=== PATIENT | female | born 1930 | race African-American/Black ===

== ENCOUNTER 2021-07-20 14:24 | Inpatient (IN) | payer MEDICARE, OTHER ==
[~2021-07-20] VITALS: Ht 162.6 cm; Wt 46.3 kg
[2021-07-20 16:01] LABS: HEMOGLOBIN. 11.2 g/dL (12.0-16.0); MEAN CORPUSCULAR HEMOGLOBIN 27.4 pg (28.0-32.0); MEAN CORPUSCULAR VOLUME 85.6 fL (81.0-99.0); MEAN PLATELET VOLUME 10.4 fl (7.4-10.4); PLATELET 92 x1000/uL (130-400); RED BLOOD CELL COUNT 4.09 mill/uL (4.2-5.4); RED CELL DISTRIBUTION WIDTH 18.6 % (11.6-14.6)
[2021-07-20 16:08] LABS: CHLORIDE 116 mEq/L (98-107)
[2021-07-20 16:35] LABS: PLATELET ESTIMATE DECREASED
[2021-07-20] MEDS ORDERED: SODIUM CHLORIDE 0.9% 500 ML IV ONE (20:00)
[2021-07-20] MEDS ORDERED: PANTOPRAZOLE SODIUM 40 MG/VIAL IV ONE (20:30)
[2021-07-20] MEDS ORDERED: AMLODIPINE 2.5MG TABLET PO ONE (21:15)
[2021-07-20 22:10] LABS: CLARITY URINE CLEAR (CLEAR); COLOR URINE YELLOW (YELLOW); KETONES URINE NEGATIVE (NEGATIVE); LEUKOCYTE ESTERASE URINE NEGATIVE (NEGATIVE); NITRITE URINE NEGATIVE (NEGATIVE); OCCULT BLOOD URINE 1+ (NEGATIVE); PROTEIN URINE 2+ (NEGATIVE); SPECIFIC GRAVITY URINE 1.011 (1.005-1.030)
[2021-07-21] MEDS ORDERED: DILTIAZEM HCL 5MG/ML 5ML VIAL IV ONE ×2 (01:00→01:15)
[2021-07-21] MEDS ORDERED: DILTIAZEM HCL 125 MG in DEXT 5% WATER 100 ML IV ONE (01:30)
[2021-07-21] MEDS ORDERED: CLONIDINE 0.1MG TABLET PO PRN (02:00)
[2021-07-21] MEDS ORDERED: ONDANSETRON HCL 4MG/2ML INJ IV PRN (02:00)
[2021-07-21] MEDS ORDERED: DILTIAZEM HCL 125 MG in DEXT 5% WATER 100 ML IV SCH (02:00)
[2021-07-21] MEDS ORDERED: DIPHENHYDRAMINE 50MG/ML VIAL IV PRN (02:00)
[2021-07-21] MEDS ORDERED: ACETAMINOPHEN 325MG TABLET PO PRN (02:00)
[2021-07-21] MEDS: PANTOPRAZOLE SODIUM 40 MG/VIAL IV SCH ×3 (03:06→21:26)
[2021-07-21 03:59] VITALS: BP 168/64
[2021-07-21 04:00] VITALS: BP 168/64
[2021-07-21] MEDS: SODIUM CHLORIDE 0.9% 1,000 ML IV SCH ×3 (05:54→21:27)
[2021-07-21] MEDS ORDERED: DILTIAZEM HCL 30MG TABLET PO SCH (06:00)
[2021-07-21 07:50] LABS: HEMATOCRIT 32.5 % (36.0-48.0); HEMOGLOBIN 10.6 g/dL (12.0-16.0); MEAN CORPUSCULAR HEMOGLOBIN 27.7 pg (28.0-32.0); MEAN CORPUSCULAR VOLUME 85.2 fL (81.0-99.0); PLATELET 75 x1000/uL (130-400); RED BLOOD CELL COUNT 3.81 mill/uL (4.2-5.4); RED CELL DISTRIBUTION WIDTH 18.4 % (11.6-14.6)
[2021-07-21 08:00] VITALS: BP 146/73
[2021-07-21] MEDS ORDERED: DILTIAZEM HCL 5MG/ML 5ML VIAL IV NR ×2 (09:00→10:00)
[2021-07-21 12:00] VITALS: BP 190/75
[2021-07-21] MEDS ORDERED: POTASSIUM CHLORIDE 20MEQ/PACKET PO NR (13:00)
[2021-07-21] MEDS ORDERED: CLONIDINE 0.2MG TABLET PO PRN (13:15)
[2021-07-21] MEDS: LOSARTAN POTASSIUM 25 MG TABLET PO SCH (13:30)
[2021-07-21] MEDS ORDERED: DILTIAZEM HCL 90MG TABLET PO NR (13:30)
[2021-07-21 16:00] VITALS: BP 97/53
[2021-07-21] MEDS: DILTIAZEM HCL 90MG TABLET PO SCH (18:40)
[2021-07-21 20:00] VITALS: BP 155/66
[2021-07-21 21:03] LABS: TOTAL IRON BINDING CAPACITY 116 ug/dL (250-450)
[2021-07-22] VITALS (7 sets, daily range): BP systolic 127–157; BP diastolic 47–69
[2021-07-22] MEDS: DILTIAZEM HCL 90MG TABLET PO SCH ×5 (00:35→23:24)
[2021-07-22 08:48] LABS: CHLORIDE 114 mEq/L (98-107)
[2021-07-22] MEDS: LOSARTAN POTASSIUM 25 MG TABLET PO SCH ×2 (09:06→21:13)
[2021-07-22] MEDS: PANTOPRAZOLE SODIUM 40 MG/VIAL IV SCH ×2 (09:06→21:13)
[2021-07-22 09:07] LABS: LDL CHOLESTEROL 24 mg/dL (5-100)
[2021-07-22 09:08] LABS: CREATINE KINASE 40 IU/L (26-192); HDL CHOLESTEROL 32 mg/dL (40-59)
[2021-07-22] MEDS: SODIUM CHLORIDE 0.9% 1,000 ML IV SCH ×2 (09:11→17:58)
[2021-07-22] MEDS ORDERED: SODIUM CHLORIDE 0.45% 250 ML IV ONE (12:15)
[2021-07-22] MEDS: ACETAMINOPHEN 325MG TABLET PO PRN (12:33)
[2021-07-22] MEDS: CLONIDINE 0.1MG TABLET PO PRN (12:33)
[2021-07-22] MEDS: FERROUS SULFATE 325MG TABLET PO SCH ×2 (12:34→17:58)
[2021-07-22] MEDS ORDERED: MAGNESIUM 2 G PREMIX 50 ML IV SCH (14:00)
[2021-07-22 16:12] LABS: HEMATOCRIT. 37.3 % (36.0-48.0); HEMOGLOBIN. 11.1 g/dL (12.0-16.0); MEAN CORPUSCULAR HEMOGLOBIN 27.7 pg (28.0-32.0); MEAN PLATELET VOLUME 10.2 fl (7.4-10.4); PLATELET 63 x1000/uL (130-400); RED BLOOD CELL COUNT 4.01 mill/uL (4.2-5.4); RED CELL DISTRIBUTION WIDTH 19.7 % (11.6-14.6)
[2021-07-22 18:38] LABS: PLATELET ESTIMATE DECREASED
[2021-07-23] MEDS: SODIUM CHLORIDE 0.9% 1,000 ML IV SCH ×2 (01:37→13:06)
[2021-07-23 04:00] VITALS: BP 130/64
[2021-07-23] MEDS: DILTIAZEM HCL 90MG TABLET PO SCH ×3 (05:31→17:42)
[2021-07-23 08:00] VITALS: BP 142/61
[2021-07-23 08:08] LABS: HEMATOCRIT. 37.1 % (36.0-48.0); HEMOGLOBIN. 11.4 g/dL (12.0-16.0); MEAN CORPUSCULAR HEMOGLOBIN 27.3 pg (28.0-32.0); MEAN CORPUSCULAR VOLUME 88.5 fL (81.0-99.0); MEAN PLATELET VOLUME 10.6 fl (7.4-10.4); PLATELET 91 x1000/uL (130-400); RED BLOOD CELL COUNT 4.19 mill/uL (4.2-5.4); RED CELL DISTRIBUTION WIDTH 18.5 % (11.6-14.6)
[2021-07-23] MEDS: LOSARTAN POTASSIUM 25 MG TABLET PO SCH ×2 (08:31→21:09)
[2021-07-23] MEDS: PANTOPRAZOLE SODIUM 40 MG/VIAL IV SCH (08:31)
[2021-07-23] MEDS: FERROUS SULFATE 325MG TABLET PO SCH ×3 (08:31→17:43)
[2021-07-23 12:00] VITALS: BP 165/69
[2021-07-23 14:00] LABS: BG BASE EXCESS -6.3 mmol/L (-2.0-2.0); BG CARBOXYHEMOGLOBIN 0.3 % (0.5-1.5); BG DEOXYHEMOGLOBIN 13.1 % (0.0-5.0); BG FRACTION INSPIRED OXYGEN 40; BG HCO3 ACT 17.7 mmol/L (22.0-26.0); BG METHEMOGLOBIN 0.3 % (0.0-1.5); BG OXYGEN SATURATION 86.8 % (92.0-98.5); BG OXYHEMOGLOBIN 86.3 % (94.0-97.0); BG PCO2 30.7 mmHg (35.0-45.0); BG PH 7.379 (7.350-7.450); BG PO2 54.9 mmHg (75.0-100.0); BG SAMPLE SITE RIGHT RADIAL; BG TOTAL HEMOGLOBIN 12.6 g/dL (12.0-18.0); BG VENT MODE NASAL CANNULA
[2021-07-23 16:00] VITALS: BP 169/76
[2021-07-23] MEDS ORDERED: ALBUTEROL 6.7GM HFA INHALER ORI PRN (17:00)
[2021-07-23] MEDS ORDERED: DEXAMETHASONE 4MG/ML 1ML VIAL IV SCH (17:00)
[2021-07-23 17:17] LABS: PLATELET ESTIMATE DECREASED
[2021-07-23] MEDS: GUAIFENESIN 600MG ER TABLET PO SCH (17:41)
[2021-07-23 20:00] VITALS: BP 145/57
[2021-07-23] MEDS: PANTOPRAZOLE 40MG DR TABLET PO SCH (21:08)
[2021-07-24] VITALS: BP 149/56
[2021-07-24] MEDS: LOSARTAN POTASSIUM 25 MG TABLET PO SCH ×2 (00:32→21:28)
[2021-07-24] MEDS: DILTIAZEM HCL 90MG TABLET PO SCH ×5 (00:33→23:58)
[2021-07-24 04:00] VITALS: BP 160/70
[2021-07-24 08:00] VITALS: BP 169/64
[2021-07-24] MEDS: CLONIDINE 0.1MG TABLET PO PRN (08:25)
[2021-07-24] MEDS: DEXAMETHASONE 10 MG/ML VIAL IV SCH (08:25)
[2021-07-24] MEDS: FERROUS SULFATE 325MG TABLET PO SCH ×3 (08:26→16:18)
[2021-07-24] MEDS: GUAIFENESIN 600MG ER TABLET PO SCH ×2 (08:26→21:29)
[2021-07-24] MEDS: PANTOPRAZOLE 40MG DR TABLET PO SCH ×2 (08:26→21:29)
[2021-07-24 12:00] VITALS: BP 166/61
[2021-07-24] MEDS: HYDRALAZINE HCL 25MG TABLET PO SCH ×2 (12:19→21:30)
[2021-07-24] MEDS: ALBUTEROL 6.7GM HFA INHALER ORI SCH ×2 (15:00→21:27)
[2021-07-24 15:13] LABS: BG BASE EXCESS -9.4 mmol/L (-2.0-2.0); BG CARBOXYHEMOGLOBIN 0.4 % (0.5-1.5); BG DEOXYHEMOGLOBIN 7.2 % (0.0-5.0); BG FRACTION INSPIRED OXYGEN 99.8; BG HCO3 ACT 14.9 mmol/L (22.0-26.0); BG METHEMOGLOBIN 0.4 % (0.0-1.5); BG OXYGEN SATURATION 92.7 % (92.0-98.5); BG PCO2 28.1 mmHg (35.0-45.0); BG PH 7.341 (7.350-7.450); BG PO2 69.8 mmHg (75.0-100.0); BG SAMPLE SITE LEFT RADIAL; BG VENT MODE MASK - NRB
[2021-07-24 15:57] VITALS: BP 147/63
[2021-07-24] MEDS: ACETAMINOPHEN 325MG TABLET PO PRN (16:17)
[2021-07-24] MEDS: CEFEPIME 1,000 MG in DEXTROSE 5% WATER 50 ML IV SCH (16:19)
[2021-07-24 20:00] VITALS: BP 151/62
[2021-07-24] MEDS: DOXYCYCLINE HYCLATE 100MG CAPSULE PO SCH (21:28)
[2021-07-24] MEDS: ASCORBIC ACID 250 MG TABLET PO SCH (21:29)
[2021-07-25] VITALS (8 sets, daily range): BP systolic 78–165; BP diastolic 45–75
[2021-07-25] MEDS: ALBUTEROL 6.7GM HFA INHALER ORI SCH ×4 (03:00→21:00)
[2021-07-25] MEDS: CEFEPIME 1,000 MG in DEXTROSE 5% WATER 50 ML IV SCH ×2 (05:47→16:09)
[2021-07-25] MEDS: DILTIAZEM HCL 90MG TABLET PO SCH ×3 (05:50→17:21)
[2021-07-25] MEDS: HYDRALAZINE HCL 25MG TABLET PO SCH ×3 (05:51→21:43)
[2021-07-25 07:11] LABS: HEMATOCRIT. 40.5 % (36.0-48.0); HEMOGLOBIN. 12.5 g/dL (12.0-16.0); MEAN CORPUSCULAR HEMOGLOBIN 27.1 pg (28.0-32.0); MEAN CORPUSCULAR VOLUME 87.9 fL (81.0-99.0); MEAN PLATELET VOLUME 10.5 fl (7.4-10.4); PLATELET 95 x1000/uL (130-400); RED CELL DISTRIBUTION WIDTH 19.5 % (11.6-14.6)
[2021-07-25 07:26] LABS: T4 FREE 2.23 ng/dL (0.76-1.46)
[2021-07-25] MEDS: DOXYCYCLINE HYCLATE 100MG CAPSULE PO SCH ×2 (08:56→21:00)
[2021-07-25] MEDS: DEXAMETHASONE 10 MG/ML VIAL IV SCH (08:56)
[2021-07-25] MEDS: ASCORBIC ACID 250 MG TABLET PO SCH ×2 (08:56→21:00)
[2021-07-25] MEDS: LOSARTAN POTASSIUM 25 MG TABLET PO SCH ×2 (08:56→21:00)
[2021-07-25] MEDS: FERROUS SULFATE 325MG TABLET PO SCH ×3 (08:56→17:23)
[2021-07-25] MEDS: PANTOPRAZOLE 40MG DR TABLET PO SCH ×2 (08:57→21:00)
[2021-07-25] MEDS: GUAIFENESIN 600MG ER TABLET PO SCH ×2 (08:57→21:00)
[2021-07-25] MEDS ORDERED: ZINC SULFATE 220 MG ( 50 ) CAPSULE PO SCH (09:00)
[2021-07-25] MEDS ORDERED: MULTIVITAMINS,THER W-MINERALS TABLET PO SCH (09:00)
[2021-07-25] MEDS ORDERED: MORPHINE SULFATE 2 MG/ML CPJ (NOT FOR IM USE) IV PRN (11:15)
[2021-07-25] MEDS ORDERED: NALOXONE HCL 0.4MG/ML VIAL IV PRN (11:30)
[2021-07-25] MEDS: MORPHINE SULFATE 2 MG/ML CPJ (NOT FOR IM USE) IV PRN ×2 (16:17→21:05)
[2021-07-25] MEDS ORDERED: METRONIDAZOLE 500MG TABLET PO SCH (17:00)
[2021-07-25 17:04] LABS: PLATELET ESTIMATE DECREASED
== END 2021-07-25 23:23 | DRG 871 ==
LOC: ER 14:24 → ENRESERV 23:17 → EDBEDREQSVC 07-21 01:41 → EDBEDREQTM 07-21 01:41 → EDBEDREQDT 07-21 01:41 → EDBEDREQSVC 07-21 02:43 → 8WST 07-21 04:29 → 7WST 07-22 21:30
PROVIDERS: ADMIT Internal Medicine; ATTEND Internal Medicine
PROC: 5A09357 Assistance with Respiratory Ventilation, Less than 24 Consecutive Hours, Continuous Positive Airway Pressure (ICD-10-PCS; principal; 2021-07-25)
DX: A41.89 Other specified sepsis (principal); U07.1 COVID-19; E43 Unspecified severe protein-calorie malnutrition; J12.82 Pneumonia due to coronavirus disease 2019; J96.01 Acute respiratory failure with hypoxia; K27.4 Chronic or unspecified peptic ulcer, site unspecified, with hemorrhage; I69.354 Hemiplegia and hemiparesis following cerebral infarction affecting left non-dominant side; I47.1 Supraventricular tachycardia; I48.92 Unspecified atrial flutter; J44.0 Chronic obstructive pulmonary disease with (acute) lower respiratory infection; N17.9 Acute kidney failure, unspecified; Z68.1 Body mass index [BMI] 19.9 or less, adult; Z66 Do not resuscitate; D50.9 Iron deficiency anemia, unspecified; D63.8 Anemia in other chronic diseases classified elsewhere; D69.6 Thrombocytopenia, unspecified; E87.6 Hypokalemia; F17.210 Nicotine dependence, cigarettes, uncomplicated; G62.9 Polyneuropathy, unspecified; Z60.2 Problems related to living alone; I11.0 Hypertensive heart disease with heart failure; I48.0 Paroxysmal atrial fibrillation; I50.9 Heart failure, unspecified; R62.7 Adult failure to thrive; I35.1 Nonrheumatic aortic (valve) insufficiency; K27.9 Peptic ulcer, site unspecified, unspecified as acute or chronic, without hemorrhage or perforation; Z87.11 Personal history of peptic ulcer disease; Z88.8 Allergy status to other drugs, medicaments and biological substances
CPT/HCPCS: 36415; 36600; 71045; 80048; 80053; 80061; 81003; 82270; 82375; 82550; 82553; 82728; 82805; 83540; 83550; 83735; 83880; 84145; 84439; 84443; 84484; 85025; 85027; 85044; 85379; 86140; 87426; 93005; 93306; 93970; 94760; 99285; A6261; C9113; J0692; J1100; J1200; J2270; J3475; J3490; J7060; U0003; U0005